=== PATIENT | female | born 1960 | race Caucasian/White ===

== ENCOUNTER 2022-07-05 09:43 | Inpatient (IN) | payer SELFPAY ==
[2022-07-05 10:40] LABS: Bilirubin Small (Negative); Blood, Urine Trace (Negative); Glucose, Urine (Dipstick) Negative (Negative); Ketone, Urine 40 mg/dL (Negative); Leukocyte Small (Negative); Nitrite Negative (Negative); Protein, Urine (Dipstick) 30 mg/dL (Neg-Trace); Urobilinogen 0.2 mg/dL (Less than 2)
[2022-07-05 10:41] LABS: Clarity Hazy (Clear)
[2022-07-05 10:43] LABS: #Basophils 0.1 thou/uL (0.0-0.2); #Lymphocytes 1.7 thou/uL (1.20-3.40); #Neutrophils 14.3 thou/uL (1.40-6.50); %Basophils 0.4 % (0.0-1.0); %Eosinophils 0.2 % (0.0-10.0); %Lymphocytes 10.1 % (21.0-51.0); %Monocytes 5.7 % (0.0-10.0); %Neutrophils 83.5 % (42.0-75.0); Hemoglobin 12.8 g/dL (12.0-16.0); Mean Corpuscular HGB CONC 32.6 g/dL (32.0-36.0); Mean Corpuscular Hemoglobin 29.4 pg (27.0-31.0); Mean Corpuscular Volume 90.2 fl (78.0-98.0); Mean Platelet Volume 7.8 fL (7.4-10.4); Platelet Count 476 10x3/uL (130-400); RBC Distribution Width 12.4 % (11.5-14.5); Red Blood Cell (RBC) Count 4.35 mill/uL (4.20-5.40); White Blood Cell (WBC) Count 17.1 10x3/uL (4.8-10.8)
[2022-07-05 10:50] LABS: RBC/HPF 0-3 HPF (0-3)
[2022-07-05 10:51] LABS: Bacteria/HPF 1+ HPF (None Seen)
[2022-07-05] MEDS ORDERED: Ondansetron PF 4 MG/2 ML Vial ONE (11:11)
[2022-07-05] MEDS ORDERED: Morphine 4 MG/ML VIAL ONE ×2 (11:11→12:55)
[2022-07-05 11:13] LABS: ALT (SGPT) 18 U/L (8-55); AST (SGOT) 19 U/L (5-34); Albumin 3.7 g/dL (3.4-4.8); Alkaline Phosphatase 191 U/L (40-110); Anion Gap 17 mmol/L (10-20); BUN (Urea Nitrogen) 11 mg/dL (9.8-20.1); Bilirubin, Total 0.6 mg/dL (0.2-1.2); Calc. Creatinine Clearance 0 mL/min (70-130); Calcium 9.8 mg/dL (7.8-10.44); Carbon Dioxide 21 mmol/L (23-31); Chloride 100 mmol/L (98-107); Estimated GFR 87; Globulin 4.3 g/dL (2.4-3.5); Glucose 98 mg/dL (80-115); Potassium 3.5 mmol/L (3.5-5.1); Sodium 134 mmol/L (136-145)
[2022-07-05] MEDS ORDERED: Ketorolac Tromethamine 30 MG/ML VIAL ONE (12:55)
[2022-07-05] MEDS ORDERED: Piperacillin/Tazobactam 4.5 GM VIAL ONE (13:02)
[2022-07-05] MEDS ORDERED: Iopamidol-370 76% 500 ML MDV (1 ML CHARGE) ONE (13:13)
[2022-07-05 15:25] VITALS: BMI 29.3
[2022-07-05] MEDS ORDERED: Acetaminophen 325 MG TAB PO PRN (16:00)
[2022-07-05] MEDS: Ondansetron PF 4 MG/2 ML Vial IVP PRN ×2 (17:12→21:28)
[2022-07-05] MEDS: HYDROcodone/Acetaminophen 5/325 mg Tablet PO PRN ×2 (17:19→21:29)
[2022-07-05] MEDS: Piperacillin/Tazobactam 3.375 GM in Sodium Chloride 0.9% 100 ML IVPB SCH (21:28)
[2022-07-05] MEDS ORDERED: Piperacillin/Tazobactam 4.5 GM in Sodium Chloride 0.9% 100 ML IVPB SCH (22:00)
[2022-07-06] MEDS: Piperacillin/Tazobactam 3.375 GM in Sodium Chloride 0.9% 100 ML IVPB SCH ×3 (04:47→20:22)
[2022-07-06] MEDS: Ondansetron PF 4 MG/2 ML Vial IVP PRN ×2 (04:48→11:12)
[2022-07-06 07:39] LABS: #Lymphocytes 1.2 thou/uL (1.20-3.40); #Monocytes 0.8 thou/uL (0.11-0.59); #Neutrophils 10.9 thou/uL (1.40-6.50); %Basophils 0.3 % (0.0-1.0); %Eosinophils 0.3 % (0.0-10.0); %Lymphocytes 8.9 % (21.0-51.0); %Monocytes 6.1 % (0.0-10.0); %Neutrophils 84.4 % (42.0-75.0); Hemoglobin 10.5 g/dL (12.0-16.0); Mean Corpuscular HGB CONC 31.7 g/dL (32.0-36.0); Mean Corpuscular Hemoglobin 28.8 pg (27.0-31.0); Mean Corpuscular Volume 90.8 fl (78.0-98.0); Mean Platelet Volume 7.8 fL (7.4-10.4); Platelet Count 398 10x3/uL (130-400); RBC Distribution Width 12.4 % (11.5-14.5); Red Blood Cell (RBC) Count 3.63 mill/uL (4.20-5.40); White Blood Cell (WBC) Count 12.9 10x3/uL (4.8-10.8)
[2022-07-06 07:42] LABS: Anion Gap 14 mmol/L (10-20); BUN (Urea Nitrogen) 9 mg/dL (9.8-20.1); Calc. Creatinine Clearance 108 mL/min (70-130); Calcium 8.8 mg/dL (7.8-10.44); Carbon Dioxide 21 mmol/L (23-31); Chloride 107 mmol/L (98-107); Estimated GFR 97; Glucose 113 mg/dL (80-115); Potassium 3.5 mmol/L (3.5-5.1); Sodium 138 mmol/L (136-145)
[2022-07-06 07:51] LABS: INR-International Normal Ratio 1.2; Prothrombin Time 15.3 sec (12.0-14.7)
[2022-07-06 07:52] LABS: PTT 42.7 sec (22.9-36.1)
[2022-07-06] MEDS ORDERED: Potassium Chloride 20 MEQ TAB PO SCH (09:00)
[2022-07-06] MEDS ORDERED: Potassium Chloride 20 MEQ in Premix Bag 1 BAG IVPB SCH (09:00)
[2022-07-06] MEDS ORDERED: Morphine 4 MG/ML VIAL SLOW IVP SCH (11:45)
[2022-07-06] MEDS ORDERED: Sodium Bicarbonate 2.5 MEQ/5 ML VIAL ONE (12:15)
[2022-07-06] MEDS ORDERED: Midazolam HCl 2 mg/2 ml Vial ONE (12:15)
[2022-07-06] MEDS ORDERED: Fentanyl 100 MCG/2 ML VIAL ONE (12:15)
[2022-07-06] MEDS ORDERED: Morphine 2 MG/ML VIAL SLOW IVP PRN ×2 (15:00→18:41)
[2022-07-06] MEDS ORDERED: Bupivacaine/Epinephrine 0.25% 30 ML VIAL ONE (15:31)
[2022-07-06] MEDS ORDERED: fentaNYL PF 100 MCG/2 ML SYRINGE ONE ×2 (16:01→18:20)
[2022-07-06] MEDS ORDERED: SUGAMMADEX SODIUM 200 MG/2 ML VIAL ONE (16:07)
[2022-07-06] MEDS ORDERED: Lidocaine 1% PF 5 ML VIAL ONE (16:19)
[2022-07-06] MEDS ORDERED: Dexamethasone 20 MG/5 ML VIAL ONE (16:19)
[2022-07-06] MEDS ORDERED: Succinylcholine Chloride 100 MG/5 ML SYRINGE FS ONE (16:19)
[2022-07-06] MEDS ORDERED: Ondansetron PF 4 MG/2 ML Vial ONE ×3 (16:19→18:14)
[2022-07-06] MEDS ORDERED: Rocuronium Bromide 10 MG/ML (10ML VIAL) ONE (16:19)
[2022-07-06] MEDS ORDERED: PROPOFOL 200 MG/20 ML VIAL ONE (16:19)
[2022-07-06] MEDS ORDERED: Piperacillin/Tazobactam 3.375 GM VIAL ONE (16:38)
[2022-07-06] MEDS ORDERED: Promethazine HCl 25 MG/ML VIAL IM PRN (18:11)
[2022-07-06] MEDS ORDERED: HYDROmorphone 2 MG/ML VIAL SLOW IVP PRN (18:11)
[2022-07-06] MEDS ORDERED: Ketorolac Tromethamine 30 MG/ML VIAL IVP PRN (18:11)
[2022-07-06] MEDS ORDERED: Ondansetron HCl/PF 4 MG/2 ML Vial IVP PRN (18:11)
[2022-07-06] MEDS ORDERED: Morphine 4 MG/ML VIAL SLOW IVP PRN (18:41)
[2022-07-06] MEDS ORDERED: Promethazine HCl 25 MG/ML VIAL ONE (18:50)
[2022-07-07] MEDS: HYDROcodone/Acetaminophen 5/325 mg Tablet PO PRN ×3 (02:02→20:33)
[2022-07-07] MEDS: Piperacillin/Tazobactam 3.375 GM in Sodium Chloride 0.9% 100 ML IVPB SCH ×3 (03:38→20:33)
[2022-07-07] MEDS: Ketorolac Tromethamine 30 MG/ML VIAL IVP SCH ×6 (05:09→23:30)
[2022-07-07 06:15] LABS: Hemoglobin 10.8 g/dL (12.0-16.0); Mean Corpuscular Hemoglobin 29.2 pg (27.0-31.0); Mean Corpuscular Volume 91.3 fl (78.0-98.0); Platelet Count 388 10x3/uL (130-400); RBC Distribution Width 12.6 % (11.5-14.5); Red Blood Cell (RBC) Count 3.69 mill/uL (4.20-5.40)
[2022-07-07 06:30] LABS: Anion Gap 12 mmol/L (10-20); BUN (Urea Nitrogen) 9 mg/dL (9.8-20.1); Calc. Creatinine Clearance 112 mL/min (70-130); Calcium 8.3 mg/dL (7.8-10.44); Carbon Dioxide 19 mmol/L (23-31); Chloride 106 mmol/L (98-107); Estimated GFR 98; Glucose 141 mg/dL (80-115); Magnesium 1.7 mg/dL (1.6-2.6); Potassium 3.3 mmol/L (3.5-5.1); Sodium 134 mmol/L (136-145)
[2022-07-07 06:46] LABS: Band 15 % (5-11); Hypochromia SLIGHT = 6-15 cells (100X) (0-5/hpf); Lymphocytes 5 % (21-51); MDiff Complete? YES; Monocytes 8 % (0-10); Neutrophil 72 % (42-75); Platelet Morphology Comment Appears Adequate
[2022-07-07] MEDS: Ondansetron PF 4 MG/2 ML Vial IVP PRN (20:33)
[2022-07-08] MEDS: Piperacillin/Tazobactam 3.375 GM in Sodium Chloride 0.9% 100 ML IVPB SCH ×3 (03:53→21:25)
[2022-07-08] MEDS: Ketorolac Tromethamine 30 MG/ML VIAL IVP SCH ×4 (05:20→17:12)
[2022-07-08 07:32] LABS: #Eosinphils 0.1 thou/uL (0.0-0.7); #Lymphocytes 1.3 thou/uL (1.20-3.40); #Neutrophils 14.6 thou/uL (1.40-6.50); %Basophils 0.1 % (0.0-1.0); %Eosinophils 0.3 % (0.0-10.0); %Lymphocytes 7.7 % (21.0-51.0); %Monocytes 5.9 % (0.0-10.0); Hemoglobin 10.8 g/dL (12.0-16.0); Mean Corpuscular HGB CONC 32.5 g/dL (32.0-36.0); Mean Corpuscular Hemoglobin 29.7 pg (27.0-31.0); Mean Corpuscular Volume 91.3 fl (78.0-98.0); Mean Platelet Volume 7.5 fL (7.4-10.4); Platelet Count 393 10x3/uL (130-400); RBC Distribution Width 12.4 % (11.5-14.5); Red Blood Cell (RBC) Count 3.63 mill/uL (4.20-5.40)
[2022-07-08 07:51] LABS: Anion Gap 11 mmol/L (10-20); BUN (Urea Nitrogen) 13 mg/dL (9.8-20.1); Calc. Creatinine Clearance 111 mL/min (70-130); Calcium 8.7 mg/dL (7.8-10.44); Carbon Dioxide 24 mmol/L (23-31); Chloride 104 mmol/L (98-107); Estimated GFR 98; Glucose 94 mg/dL (80-115); Potassium 3.5 mmol/L (3.5-5.1); Sodium 135 mmol/L (136-145)
[2022-07-08] MEDS: Ondansetron PF 4 MG/2 ML Vial IVP PRN (08:43)
[2022-07-08] MEDS: HYDROcodone/Acetaminophen 5/325 mg Tablet PO PRN ×2 (08:48→16:14)
[2022-07-08] MEDS ORDERED: Loperamide HCl 2 MG CAP PO SCH (23:45)
[2022-07-09] MEDS: Ketorolac Tromethamine 30 MG/ML VIAL IVP SCH ×3 (01:21→11:29)
[2022-07-09] MEDS: Piperacillin/Tazobactam 3.375 GM in Sodium Chloride 0.9% 100 ML IVPB SCH ×2 (03:34→11:31)
[2022-07-09 07:24] LABS: #Eosinphils 0.1 thou/uL (0.0-0.7); #Lymphocytes 1.7 thou/uL (1.20-3.40); #Neutrophils 13.8 thou/uL (1.40-6.50); %Basophils 0.1 % (0.0-1.0); %Eosinophils 0.5 % (0.0-10.0); %Lymphocytes 10.2 % (21.0-51.0); %Monocytes 5.8 % (0.0-10.0); %Neutrophils 83.4 % (42.0-75.0); Hemoglobin 10.2 g/dL (12.0-16.0); Mean Corpuscular HGB CONC 32.3 g/dL (32.0-36.0); Mean Corpuscular Hemoglobin 29.2 pg (27.0-31.0); Mean Corpuscular Volume 90.3 fl (78.0-98.0); Mean Platelet Volume 7.9 fL (7.4-10.4); Platelet Count 386 10x3/uL (130-400); RBC Distribution Width 12.4 % (11.5-14.5); Red Blood Cell (RBC) Count 3.49 mill/uL (4.20-5.40); White Blood Cell (WBC) Count 16.6 10x3/uL (4.8-10.8)
[2022-07-09 07:38] LABS: Anion Gap 10 mmol/L (10-20); BUN (Urea Nitrogen) 11 mg/dL (9.8-20.1); Calc. Creatinine Clearance 118 mL/min (70-130); Calcium 8.4 mg/dL (7.8-10.44); Carbon Dioxide 25 mmol/L (23-31); Chloride 103 mmol/L (98-107); Estimated GFR 99; Glucose 96 mg/dL (80-115); Potassium 3.3 mmol/L (3.5-5.1); Sodium 135 mmol/L (136-145)
[2022-07-09] MEDS: HYDROcodone/Acetaminophen 5/325 mg Tablet PO PRN ×2 (15:03→22:33)
[2022-07-09] MEDS: Amoxicillin/Potassium Clav 875 MG TAB PO SCH (19:58)
[2022-07-10] MEDS: HYDROcodone/Acetaminophen 5/325 mg Tablet PO PRN (03:40)
[2022-07-10] MEDS: Ondansetron PF 4 MG/2 ML Vial IVP PRN ×2 (03:40→10:08)
[2022-07-10 06:31] LABS: #Eosinphils 0.2 thou/uL (0.0-0.7); #Lymphocytes 1.3 thou/uL (1.20-3.40); %Eosinophils 1.7 % (0.0-10.0); %Monocytes 8.2 % (0.0-10.0); Hemoglobin 9.9 g/dL (12.0-16.0); Mean Corpuscular HGB CONC 32.8 g/dL (32.0-36.0); Mean Corpuscular Hemoglobin 29.6 pg (27.0-31.0); Mean Corpuscular Volume 90.4 fl (78.0-98.0); Mean Platelet Volume 7.5 fL (7.4-10.4); Platelet Count 416 10x3/uL (130-400); RBC Distribution Width 12.2 % (11.5-14.5); Red Blood Cell (RBC) Count 3.33 mill/uL (4.20-5.40); White Blood Cell (WBC) Count 12.5 10x3/uL (4.8-10.8)
[2022-07-10 06:51] LABS: Anion Gap 11 mmol/L (10-20); BUN (Urea Nitrogen) 11 mg/dL (9.8-20.1); Calc. Creatinine Clearance 139 mL/min (70-130); Calcium 8.5 mg/dL (7.8-10.44); Carbon Dioxide 25 mmol/L (23-31); Chloride 103 mmol/L (98-107); Estimated GFR 103; Glucose 98 mg/dL (80-115); Potassium 3.6 mmol/L (3.5-5.1); Sodium 135 mmol/L (136-145)
[2022-07-10] MEDS ORDERED: Ketorolac Tromethamine 30 MG/ML VIAL ONE (10:01)
[2022-07-10] MEDS: Amoxicillin/Potassium Clav 875 MG TAB PO SCH ×2 (10:11→20:02)
[2022-07-10] MEDS ORDERED: Ondansetron PF 4 MG/2 ML Vial IVP SCH (10:15)
[2022-07-10] MEDS ORDERED: Ketorolac Tromethamine 30 MG/ML VIAL IVP SCH (10:15)
[2022-07-10] MEDS ORDERED: Acetaminophen 500 MG TAB PO SCH (11:45)
[2022-07-10] MEDS: Acetaminophen 500 MG TAB PO PRN ×2 (16:32→23:03)
[2022-07-10] MEDS: Ibuprofen 600 MG TAB PO PRN ×2 (16:32→23:02)
[2022-07-10] MEDS: traMADol HCl 50 MG TAB PO PRN ×2 (16:33→23:04)
[2022-07-11] MEDS: Ondansetron PF 4 MG/2 ML Vial IVP PRN (05:37)
[2022-07-11 06:08] LABS: #Basophils 0.1 thou/uL (0.0-0.2); #Eosinphils 0.3 thou/uL (0.0-0.7); #Lymphocytes 1.5 thou/uL (1.20-3.40); #Neutrophils 7.3 thou/uL (1.40-6.50); %Eosinophils 2.6 % (0.0-10.0); %Lymphocytes 14.7 % (21.0-51.0); %Monocytes 9.5 % (0.0-10.0); %Neutrophils 72.1 % (42.0-75.0); Hemoglobin 10.1 g/dL (12.0-16.0); Mean Corpuscular HGB CONC 32.9 g/dL (32.0-36.0); Mean Corpuscular Hemoglobin 29.7 pg (27.0-31.0); Mean Corpuscular Volume 90.3 fl (78.0-98.0); Mean Platelet Volume 7.4 fL (7.4-10.4); Platelet Count 435 10x3/uL (130-400); RBC Distribution Width 12.4 % (11.5-14.5); White Blood Cell (WBC) Count 10.1 10x3/uL (4.8-10.8)
[2022-07-11 06:33] LABS: Anion Gap 12 mmol/L (10-20); BUN (Urea Nitrogen) 8 mg/dL (9.8-20.1); Calc. Creatinine Clearance 134 mL/min (70-130); Calcium 8.8 mg/dL (7.8-10.44); Carbon Dioxide 27 mmol/L (23-31); Chloride 104 mmol/L (98-107); Estimated GFR 102; Glucose 96 mg/dL (80-115); Potassium 3.5 mmol/L (3.5-5.1); Sodium 139 mmol/L (136-145)
[2022-07-11] MEDS: Acetaminophen 500 MG TAB PO PRN ×2 (08:40→14:58)
[2022-07-11] MEDS: Ibuprofen 600 MG TAB PO PRN ×2 (08:40→14:58)
[2022-07-11] MEDS: Amoxicillin/Potassium Clav 875 MG TAB PO SCH (08:41)
[2022-07-11 11:54] VITALS: BP 137/84; TEMP 97.9
== END 2022-07-11 15:00 | disposition home or self-care (01) | DRG 853 ==
LOC: ERS 09:43 → T4-B 15:16 → SJJU 07-06 19:14
PROVIDERS: ADMIT Internal Medicine; ATTEND Family Medicine
PROC: 0W9J0ZZ Drainage of Pelvic Cavity, Open Approach (ICD-10-PCS; principal; 2022-07-08)
PROC: 0WJJ4ZZ Inspection of Pelvic Cavity, Percutaneous Endoscopic Approach (ICD-10-PCS; 2022-07-08)
DX: A41.9 Sepsis, unspecified organism (principal); K65.1 Peritoneal abscess; K57.20 Diverticulitis of large intestine with perforation and abscess without bleeding; N39.0 Urinary tract infection, site not specified; I10 Essential (primary) hypertension; F32.A Depression, unspecified; E87.6 Hypokalemia; B96.20 Unspecified Escherichia coli [E. coli] as the cause of diseases classified elsewhere; K57.30 Diverticulosis of large intestine without perforation or abscess without bleeding; Z85.038 Personal history of other malignant neoplasm of large intestine; Z79.82 Long term (current) use of aspirin; Z82.49 Family history of ischemic heart disease and other diseases of the circulatory system; Z79.899 Other long term (current) drug therapy; Z90.89 Acquired absence of other organs
CPT/HCPCS: 36415; 74177; 76380; 77002; 80048; 80053; 81003; 81015; 83605; 83690; 83735; 85025; 85610; 85730; 87040; 87070; 87077; 87186; 87205; 87324; 87449; 96361; 96365; 96375; 96376; J1100; J1885; J2250; J2270; J2272; J2405; J2543; J2550; J2704; J3010; J3480; J3490; Q9967